=== PATIENT | male | born 1955 | race Two or more races ===

== ENCOUNTER → 2017-02-02 | Outpatient (CLI) | payer MEDICARE ==
--- NOTE | 2017-02-02 13:42 | CT ---
EXAMINATION TYPE: CT soft tissue neck w con DATE OF EXAM: 02/02/2017 HISTORY: Patient complains of swollen right posterior lymph node, marked by BB. Palpable right neck m ass. COMPARISON: NONE CT DLP: 1268 mGycm. Automated Exposure Control for Dose Reduction was Utilized. TECHNIQUE: CT scan of the neck is performed with IV Contrast, patient injected with 100 mL of Omnipa que 300, axial images are obtained, coronal and sagittal reformatted images are reviewed. FINDINGS: A metallic BB is placed at level of palpable abnormality posterior right neck on axial image 31. Just below this level in the posterior paraspinal muscles; there is oval well-defined fat-containing les ion without suspicious nodularity or nodular enhancement seen on coronal image 82, sagittal image 35, and axial image 42 measuring 2.0 cm transversely by 4.6 cm craniocaudal dimension by 4.[address] consistent with moderate size lipoma. Airway is grossly patent. Coronary artery calcification is present which is noted marker for coronary artery disease. Ascending aorta measures up to 3.7 cm in diameter on axial image 86. There is dominant left vertebral artery which has calcified plaque distally. Tortuous course to basil ar artery is present. Levoconvex scoliotic curvature centered near cervicothoracic junction is present. No suspicious greater than 1 cm neck adenopathy is seen. IMPRESSION: A moderate size right paraspinal lipoma is noted corresponding to level of palpable abnor mality in this patient.
== END | disposition home or self-care (01) ==
LOC: RADCTMAIN 12:27
PROVIDERS: ATTEND Otolaryngology
DX: D17.79 Benign lipomatous neoplasm of other sites (principal)
CPT/HCPCS: 70491; Q9967